=== PATIENT | female | born 1965 | race Two or more races ===

== ENCOUNTER 2020-09-18 15:34 | Inpatient (IN) | payer MEDICAID, OTHER ==
[~2020-09-18] VITALS: Ht 157.5 cm; Wt 97.2 kg
[2020-09-18 16:48] LABS: Urine Bacteria FEW /hpf (None Seen); Urine Blood 1+ /uL (Negative); Urine Specific Gravity 1.015 (1.001-1.035); Urine WBC 45 /hpf (0 - 5)
[2020-09-18] MEDS ORDERED: SODIUM CHLORIDE 0.9% 1,000 ML IVB ONE ×2 (18:15→19:45)
[2020-09-18] MEDS ORDERED: cefTRIAXone 1GM/50ML D5W 50 ML IV ONE (18:15)
[2020-09-18] MEDS ORDERED: ONDANSETRON ODT 4 MG TAB PO ONE (18:15)
[2020-09-18] MEDS ORDERED: KETOROLAC TROMETH 30 MG/ML 1ML VIAL IV ONE (19:45)
[2020-09-18 21:04] LABS: Hematocrit 41.6 % (36.0-46.0); Mean Corpuscular Hemoglobin 28.3 pg (28.0-32.0); Mean Corpuscular Hgb Conc. 33.5 g/dL (32.0-36.0); Mean Corpuscular Volume 84.5 fL (80.0-100.0); Platelet Count (auto) 280 10^3/uL (140-450); Red Blood Cells 4.93 10^6/uL (4.0-5.20); Red Cell Distribution Width 13.6 % (11.8-14.3); White Blood Cell 26.8 10^3/uL (4.4-10.8)
[2020-09-18 21:09] LABS: Basophils % (manual) 0 (0.0-2.0); Blast Cells 0; Eosinophils % (manual) 0 (0-7); Metamyelocytes % 0; Myelocytes % 0; Promyelocytes % 0; Reactive Lymphocytes 0
[2020-09-18 21:16] LABS: Albumin 3.5 g/dL (3.4-5.0); Calcium 9.3 mg/dL (8.5-10.1); Potassium 3.3 mmol/L (3.5-5.1)
[2020-09-18 21:20] LABS: BUN/Creatinine Ratio 21.2; Bilirubin, Total 0.6 mg/dL (0.2-1.0); Total Protein 7.7 g/dL (6.4-8.2)
[2020-09-18] MEDS ORDERED: HYDROcodone-ACET 5/325MG TAB PO PRN (22:15)
[2020-09-18] MEDS ORDERED: TEMAZEPAM 15 MG CAP PO PRN (22:15)
[2020-09-18] MEDS ORDERED: POTASSIUM CHL 20 Meq TABLET PO ONE (22:15)
[2020-09-18] MEDS ORDERED: ONDANSETRON HCL 4 MG/2 ML VIAL IV PRN (22:15)
[2020-09-18] MEDS ORDERED: DEXTROSE (50%) 50ML SYRG IV PRN (22:15)
[2020-09-18 22:28] LABS: Band Neutrophils % (manual) 6; Lymphocytes % (manual) 5 (10.0-50.0); Monocytes % (manual) 3 (0-12)
--- NOTE | 2020-09-18 23:33 | NUR ---
Patient Brought to Unit From ER Patient AOx4 and laying in bed w/ HOB at 30 degrees. Patient bed locked in lowest position and call light within reach. Patient has no s/s of distress or SOB. Asked patient about pain level, patient said "No pain." Will continue to monitor.
[2020-09-19] MEDS ORDERED: METF-370 PO (00:29)
[2020-09-19] MEDS ORDERED: LISI-648 PO (00:29)
[2020-09-19] MEDS ORDERED: CETI10TA80 PO (00:29)
[2020-09-19] MEDS ORDERED: MECL25TA18 PO (00:29)
[2020-09-19] MEDS ORDERED: GEMF600T7 PO (00:29)
[2020-09-19] MEDS ORDERED: GLIP10TA9 PO (00:29)
[2020-09-19] MEDS: ACETAMINOPHEN 325 MG TAB PO PRN ×2 (04:45→16:26)
--- NOTE | 2020-09-19 04:45 | NUR ---
Fever Patient has temperature of 102.7 F; Patient was given Tylenol PRN as prescribed for temperature. Cooling measures also applied. Will re-check temperature and monitor patient.
[2020-09-19 05:00] VITALS: BP 106/54
--- NOTE | 2020-09-19 06:00 | NUR ---
Temp re-check Temp is now 100.0 F; cooling measures still applied. Will continue to monitor.
[2020-09-19] MEDS: ACCU-CHEK COMFORT CURVE STRIP VI SCH ×4 (06:41→21:52)
[2020-09-19] MEDS: InsuLIN REG 1unit/0.01ml Soln (100units/ml) SC SCH ×4 (06:43→22:03)
[2020-09-19 07:43] LABS: Basophils # (auto) 0 10 ^3/uL (0-0.2); Basophils % (auto) 0.1 % (0.0-2.0); Eosinophils # (auto) 0 10 ^3/uL (0-0.8); Hematocrit 38.4 % (36.0-46.0); Hemoglobin 12.7 g/dL (12.2-16.2); Lymphocytes # (auto) 1.2 10 ^3/uL (0.4-5.4); Lymphocytes % (auto) 5.7 % (10.0-50.0); Mean Corpuscular Hemoglobin 28.3 pg (28.0-32.0); Mean Corpuscular Hgb Conc. 32.9 g/dL (32.0-36.0); Mean Corpuscular Volume 85.8 fL (80.0-100.0); Monocytes # (auto) 1.1 10 ^3/uL (0-1.3); Neutrophils # (auto) 19.5 10 ^3/uL (1.6-8.6); Neutrophils % (auto) 89.2 % (37.0-80.0); Platelet Count (auto) 224 10^3/uL (140-450); Red Blood Cells 4.48 10^6/uL (4.0-5.20); Red Cell Distribution Width 13.6 % (11.8-14.3); White Blood Cell 21.9 10^3/uL (4.4-10.8)
[2020-09-19 07:56] LABS: BUN/Creatinine Ratio 24.8; Calcium 8.5 mg/dL (8.5-10.1); Potassium 3.4 mmol/L (3.5-5.1)
[2020-09-19 09:00] VITALS: BP 91/50
[2020-09-19] MEDS: cefTRIAXone 1GM/50ML D5W 50 ML IV SCH (10:13)
[2020-09-19] MEDS: FAMOTIDINE 20 MG TAB PO SCH ×2 (10:13→21:52)
--- NOTE | 2020-09-19 11:20 | NUR ---
physician rounding Dr. Calvo at bedside. Md updated patient on plan of care and patient verbalized understanding. Will follow through, will continue care.
[2020-09-19 12:34] VITALS: BP 104/58
[2020-09-19] MEDS ORDERED: HYDROcodone-ACET 5/325MG TAB PO PRN (12:45)
[2020-09-19] MEDS ORDERED: SODIUM CHLORIDE 0.9% 1,000 ML IV ONE (14:00)
--- NOTE | 2020-09-19 16:10 | NUR ---
Cooling Measures applied. Patient currently has temp of 100.9 , cooling measures in place. Will administer ordered medications for fever.
--- NOTE | 2020-09-19 16:15 | NUR ---
OPENING SHIFT NOTE Assumed care of patient from JILLIAN RN. No s/s of distress noted. Patient is AOX4. Bed is in lowest locked position, side rails up x2 and call light within reach. Updated patient on plan of care and patient verbalized understanding. Will continue to monitor. Addendum: 09/19/20 at 1624 by AGUILA GANDARA RN CORRECT TIME IS 0740
[2020-09-19 16:51] VITALS: BP 116/66
--- NOTE | 2020-09-19 17:30 | NUR ---
Cooling Measures applied. Patient currently has temp of 100.8 , cooling measures in place.
[2020-09-19 17:55] LABS: Calcium 8.6 mg/dL (8.5-10.1); Potassium 3.5 mmol/L (3.5-5.1)
--- NOTE | 2020-09-19 19:30 | NUR ---
Opening Shift Note Assumed patient care. Patient is AOx4 no s/s of distress noted. Bed is in lowest locked position, call light within reach and side rails up x2. Updated patient on plan of care and patient verbalized understanding. Will continue to monitor.
--- NOTE | 2020-09-19 20:00 | NUR ---
Temp Re-Check: 98.3 F Patient is relaxed and has no complaints.
[2020-09-19 21:30] VITALS: BP 100/55
[2020-09-20 04:30] VITALS: BP 101/54
[2020-09-20] MEDS: ACCU-CHEK COMFORT CURVE STRIP VI SCH ×4 (06:30→22:12)
[2020-09-20] MEDS: InsuLIN REG 1unit/0.01ml Soln (100units/ml) SC SCH ×4 (06:35→22:17)
--- NOTE | 2020-09-20 07:20 | NUR ---
Assumed Care Assumed care patient AOx4 Thai speaker only. No pain reported at this time. No s/s of distress. Patient updated on POC and instructions to call for assistance as needed were provided. Bed in lowest, locked position, call light within reach, side rails x2 up. Will continue care.
[2020-09-20 09:00] VITALS: BP 114/58
[2020-09-20] MEDS: cefTRIAXone 1GM/50ML D5W 50 ML IV SCH (09:30)
[2020-09-20] MEDS: FAMOTIDINE 20 MG TAB PO SCH ×2 (09:31→22:11)
[2020-09-20 11:48] LABS: Basophils # (auto) 0.1 10 ^3/uL (0-0.2); Eosinophils # (auto) 0.1 10 ^3/uL (0-0.8); Eosinophils % (auto) 0.9 % (0.0-7.0); Nucleated Red Blood Cells % 0.1 %
[2020-09-20 11:57] LABS: Basophils % (auto) 0.7 % (0.0-2.0); Hematocrit 36.3 % (36.0-46.0); Hemoglobin 11.9 g/dL (12.2-16.2); Lymphocytes # (auto) 2.9 10 ^3/uL (0.4-5.4); Lymphocytes % (auto) 17.3 % (10.0-50.0); Mean Corpuscular Hemoglobin 28.3 pg (28.0-32.0); Mean Corpuscular Hgb Conc. 32.8 g/dL (32.0-36.0); Mean Corpuscular Volume 86.5 fL (80.0-100.0); Monocytes # (auto) 0.9 10 ^3/uL (0-1.3); Monocytes % (auto) 5.3 % (0.0-12.0); Neutrophils # (auto) 12.8 10 ^3/uL (1.6-8.6); Neutrophils % (auto) 75.8 % (37.0-80.0); Platelet Count (auto) 185 10^3/uL (140-450); Red Cell Distribution Width 13.6 % (11.8-14.3); White Blood Cell 16.9 10^3/uL (4.4-10.8)
[2020-09-20 12:06] LABS: Calcium 8.8 mg/dL (8.5-10.1); Potassium 4.8 mmol/L (3.5-5.1)
[2020-09-20] MEDS ORDERED: ENOXAPARIN SOD 40 MG/0.4 ML SYRINGE SC ONE (12:15)
[2020-09-20 12:40] VITALS: BP 138/69
[2020-09-20 16:29] VITALS: BP 141/73
--- NOTE | 2020-09-20 19:20 | NUR ---
Opening Shift Note Assumed patient care. Patient is AOx4 with HOB at 30 degrees. Patient has no complaints of pain, no s/s of distress or SOB. Patient bed locked in lowest position and call light is within reach. Will continue to monitor.
--- NOTE | 2020-09-20 21:12 | NUR ---
Temp 100.1 Cooling measures applied; will continue to monitor and re-check temp.
[2020-09-20 21:42] VITALS: BP 144/62
--- NOTE | 2020-09-20 22:32 | NUR ---
Temp Re-Check 98.5 F
[2020-09-21 05:04] VITALS: BP 125/71
[2020-09-21] MEDS: ACCU-CHEK COMFORT CURVE STRIP VI SCH ×4 (06:45→21:45)
[2020-09-21] MEDS: InsuLIN REG 1unit/0.01ml Soln (100units/ml) SC SCH ×4 (06:45→21:55)
[2020-09-21 09:00] VITALS: BP 109/63
[2020-09-21] MEDS: FAMOTIDINE 20 MG TAB PO SCH ×2 (10:00→21:45)
[2020-09-21] MEDS: cefTRIAXone 1GM/50ML D5W 50 ML IV SCH (10:00)
[2020-09-21] MEDS: ENOXAPARIN SOD 40 MG/0.4 ML SYRINGE SC SCH (10:00)
--- NOTE | 2020-09-21 12:20 | NUR ---
RECEIVED CRITICAL BLOOD CULTURE, REPORTED TO Sandie DOHERTY. Sandie IS AWARE. NO NEW ORDERS RECEIVED.
[2020-09-21 12:46] VITALS: BP 136/78
[2020-09-21] MEDS ORDERED: VANCOMYCIN PER PHARMACY 0 MG IV SCH (15:15)
[2020-09-21] MEDS: SODIUM CHLORIDE 0.9% 1,000 ML IV SCH (15:40)
[2020-09-21 16:46] VITALS: BP 126/77
[2020-09-21] MEDS: VANCOMYCIN 1GM/250ML 250 ML IV SCH (18:06)
--- NOTE | 2020-09-21 19:30 | NUR ---
PATIENT COMPLAINING OF ITCHINESS AND REDNESS ACROSS FACE. UPON ASSESSMENT, PATIENT IS NOTED TO HAVE REDNESS AND WARMTH TO FACE AND NECK AREA. PATIENT DENIES ANY SOB OR TIGHTNESS IN THROAT. PATIENTS OXYGEN SATURATIONS AT THIS TIME AT 96% WITH RR 17. MAGGIE MCKNIGHT AND INFORMED OF NEW FINDINGS.INFORMED THIS WAS PATIENTS FIRST DOSE OF VANCOMYCIN. INSTRUCTED TO SLOW INFUSIONS OF NEXT VANCOMYCIN INFUSIONS. ALSO RECIEVED ORDERS FOR NEW MEDICATIONS. TORB. SEE EMAR. WILL FOLLOW THROUGH.
--- NOTE | 2020-09-21 19:40 | NUR ---
RECEIVED PATIENT FROM DAY SHIFT RN. PATIENT RESTING IN BED. NO S/S OF DISTRESS NOTED.. C/O ITCHING AND WARMTH ON FACE AND NECK AREA GETTING BETTER AFTER MEDICATION. CONTINUE NS BOLUS ORDERED. DENIED PAIN AND SOB AT THIS TIME. POC INSTRUCTED AND ENCOURAGED PATIENT TO CALL FOR MANAGER METROLOGY IF NEEDED. BED IN LOWEST POSITION WITH SIDE RAILS UP X 2. CALL THOMPSON WITHIN REACH. ALARM ON. CONTINUE TO MONITOR FOR CHANGES Q1H AND PRN.
[2020-09-21] MEDS ORDERED: SODIUM CHLORIDE 0.9% 1,000 ML IV ONE (19:45)
[2020-09-21] MEDS ORDERED: methylPREDNISolone SOD SUCC 125 MG/2 ML VL IV ONE (19:45)
[2020-09-21] MEDS ORDERED: diphenhdrAMINE HCL 50 MG/1 ML VL IV ONE (19:45)
--- NOTE | 2020-09-21 20:30 | NUR ---
PATIENT'S FACE AND NECK BACK TO NORMAL COLOR, PATIENT DENIED ANY ITCHING AND DISCOMFORT. CONTINUE TO MONITOR.
[2020-09-21 22:00] VITALS: BP 133/76
--- NOTE | 2020-09-21 22:29 | NUR ---
ACCU-CHECK, BS 235. INSULIN GIVEN ORDERED. CONTINUE TO MONITOR.
--- NOTE | 2020-09-22 03:29 | NUR ---
PATIENT SLEEPING. NO S/S OF DISTRESS NOTED. CONTINUE TO MONITOR.
[2020-09-22 05:00] VITALS: BP 118/67
[2020-09-22] MEDS: VANCOMYCIN 1GM/250ML 250 ML IV SCH ×2 (05:15→17:52)
[2020-09-22] MEDS: ACCU-CHEK COMFORT CURVE STRIP VI SCH ×4 (06:17→21:42)
[2020-09-22] MEDS: InsuLIN REG 1unit/0.01ml Soln (100units/ml) SC SCH ×5 (06:18→21:43)
[2020-09-22 06:58] LABS: Basophils # (auto) 0 10 ^3/uL (0-0.2); Basophils % (auto) 0.6 % (0.0-2.0); Eosinophils # (auto) 0 10 ^3/uL (0-0.8); Eosinophils % (auto) 0.1 % (0.0-7.0); Hematocrit 38.4 % (36.0-46.0); Hemoglobin 12.7 g/dL (12.2-16.2); Lymphocytes % (auto) 15.2 % (10.0-50.0); Mean Corpuscular Hemoglobin 28.6 pg (28.0-32.0); Mean Corpuscular Volume 86.7 fL (80.0-100.0); Monocytes # (auto) 0.1 10 ^3/uL (0-1.3); Monocytes % (auto) 0.9 % (0.0-12.0); Neutrophils # (auto) 5.5 10 ^3/uL (1.6-8.6); Neutrophils % (auto) 83.2 % (37.0-80.0); Nucleated Red Blood Cells % 0.1 %; Platelet Count (auto) 220 10^3/uL (140-450); Red Blood Cells 4.42 10^6/uL (4.0-5.20); Red Cell Distribution Width 13.1 % (11.8-14.3); White Blood Cell 6.6 10^3/uL (4.4-10.8)
[2020-09-22 07:18] LABS: Magnesium 2.4 mg/dL (1.6-2.6); Potassium 3.9 mmol/L (3.5-5.1)
[2020-09-22 07:25] LABS: Albumin 2.6 g/dL (3.4-5.0); BUN/Creatinine Ratio 30.9; Bilirubin, Total 0.3 mg/dL (0.2-1.0); Calcium 9.1 mg/dL (8.5-10.1); Total Protein 7.6 g/dL (6.4-8.2)
[2020-09-22 08:40] VITALS: BP 137/73
[2020-09-22] MEDS: cefTRIAXone 1GM/50ML D5W 50 ML IV SCH (09:09)
[2020-09-22] MEDS: FAMOTIDINE 20 MG TAB PO SCH ×2 (09:09→21:42)
[2020-09-22] MEDS: ENOXAPARIN SOD 40 MG/0.4 ML SYRINGE SC SCH (09:10)
--- NOTE | 2020-09-22 10:30 | NUR ---
DR. DOHERTY AT BESIDE WITH MYSELF DISCUSSING POC WITH PATIENT-INFORMED PATIENT THAT AT THIS TIME TO CONTINUE ABX THERAPY AND AWAIT BLOOD CULTURES. PATIENT'S SON TRANSLATED THIS INFORMATION AND PATIENT VERBALIZED INFORMATION.
[2020-09-22] MEDS ORDERED: INFLUENZA QUAD 2020-2021 0.5 ML SYRG IM ONE (12:45)
[2020-09-22 12:59] VITALS: BP 137/69
[2020-09-22] MEDS: SODIUM CHLORIDE 0.9% 1,000 ML IV SCH (14:51)
--- NOTE | 2020-09-22 15:38 | NUR ---
Nutrition Assessment Notes Please refer to link for full assessment notes. Est Energy needs: [id number] kcals (17-20 kcal/kgBW) Est Protein needs: 65-81 gms/day (0.8-1.0 gm/kgBW) Will continue to monitor and reassess prn. Addendum: 09/22/20 at [address] Amended: Links added.
[2020-09-22 17:19] VITALS: BP 138/76
--- NOTE | 2020-09-22 19:20 | NUR ---
RECEIVED PATIENT FROM DAY SHIFT RN. PATIENT RESTING IN BED. NO S/S OF DISTRESS NOTED.. DENIED PAIN AND ANY DISCOMFORT AT THIS TIME. POC INSTRUCTED AND ENCOURAGED PATIENT TO CALL FOR MOMD TEACHER IF NEEDED. BED IN LOWEST POSITION WITH SIDE RAILS UP X 2. CALL THOMPSON WITHIN REACH. CONTINUE TO MONITOR FOR CHANGES Q1H AND PRN.
--- NOTE | 2020-09-22 21:46 | NUR ---
ACCU-CHECK, BS 252. INSULIN GIVEN ORDERED. CONTINUE TO MONITOR.
[2020-09-22 22:00] VITALS: BP 146/79
--- NOTE | 2020-09-23 02:07 | NUR ---
PATIENT SLEEPING. NO S/S OF DISTRESS AND PAIN NOTED. CONTINUE TO MONITOR.
[2020-09-23 05:00] VITALS: BP 112/63
[2020-09-23] MEDS: VANCOMYCIN 1GM/250ML 250 ML IV SCH (05:01)
[2020-09-23] MEDS: InsuLIN REG 1unit/0.01ml Soln (100units/ml) SC SCH ×4 (06:27→21:59)
[2020-09-23] MEDS: ACCU-CHEK COMFORT CURVE STRIP VI SCH ×4 (06:27→21:54)
--- NOTE | 2020-09-23 06:28 | NUR ---
ACCU-CHECK, BS 180. INSULIN GIVEN ORDERED. CONTINUE TO MONITOR.
[2020-09-23 09:00] VITALS: BP 139/69
[2020-09-23] MEDS: FAMOTIDINE 20 MG TAB PO SCH ×2 (09:03→21:54)
[2020-09-23] MEDS: cefTRIAXone 1GM/50ML D5W 50 ML IV SCH (09:04)
[2020-09-23] MEDS: SODIUM CHLORIDE 0.9% 1,000 ML IV SCH (09:04)
[2020-09-23] MEDS: ENOXAPARIN SOD 40 MG/0.4 ML SYRINGE SC SCH (09:04)
[2020-09-23 13:00] VITALS: BP 113/66
[2020-09-23] MEDS ORDERED: levoFLOXacin 500 MG TAB PO ONE (14:45)
[2020-09-23 16:41] VITALS: BP 141/71
--- NOTE | 2020-09-23 19:35 | NUR ---
Opening Shift Note Assumed care of patient, awake and alert. No S/S of distress/SOB. Instructed on POC and to call for assist PRN. Bed is in lowest locked position with bed rails up x2 and call light is within reach of the patient.
[2020-09-23 22:00] VITALS: BP 126/76
[2020-09-24 05:30] VITALS: BP 119/71
[2020-09-24] MEDS: ACCU-CHEK COMFORT CURVE STRIP VI SCH ×2 (06:30→12:21)
[2020-09-24] MEDS: InsuLIN REG 1unit/0.01ml Soln (100units/ml) SC SCH ×2 (06:36→11:30)
[2020-09-24 07:12] LABS: Basophils # (auto) 0.1 10 ^3/uL (0-0.2); Basophils % (auto) 0.5 % (0.0-2.0); Eosinophils # (auto) 0.1 10 ^3/uL (0-0.8); Eosinophils % (auto) 1.1 % (0.0-7.0); Hematocrit 39.1 % (36.0-46.0); Hemoglobin 13.1 g/dL (12.2-16.2); Lymphocytes # (auto) 2.6 10 ^3/uL (0.4-5.4); Lymphocytes % (auto) 27.3 % (10.0-50.0); Mean Corpuscular Hemoglobin 28.4 pg (28.0-32.0); Mean Corpuscular Hgb Conc. 33.4 g/dL (32.0-36.0); Mean Corpuscular Volume 84.9 fL (80.0-100.0); Monocytes # (auto) 0.7 10 ^3/uL (0-1.3); Monocytes % (auto) 7.6 % (0.0-12.0); Neutrophils % (auto) 63.5 % (37.0-80.0); Nucleated Red Blood Cells % 0.1 %; Platelet Count (auto) 263 10^3/uL (140-450); Red Cell Distribution Width 13.3 % (11.8-14.3); White Blood Cell 9.4 10^3/uL (4.4-10.8)
[2020-09-24 07:43] LABS: Potassium 3.6 mmol/L (3.5-5.1)
[2020-09-24 07:56] LABS: BUN/Creatinine Ratio 28.9
[2020-09-24 09:00] VITALS: BP 140/71
[2020-09-24] MEDS: ENOXAPARIN SOD 40 MG/0.4 ML SYRINGE SC SCH (09:49)
[2020-09-24] MEDS: FAMOTIDINE 20 MG TAB PO SCH (09:49)
--- NOTE | 2020-09-24 09:52 | NUR ---
Levofloxacin Medication order was 500mg at the time when patient and medication was scanned and administered. However it was not saved due to edits that occurred prior to saving. Pharmacy was notified and will enter a one time dose for an additional 250mg.
[2020-09-24] MEDS ORDERED: levoFLOXacin 500 MG TAB PO SCH (10:00)
[2020-09-24] MEDS ORDERED: levoFLOXacin 250 MG TAB PO ONE (10:00)
[2020-09-24] MEDS ORDERED: levoFLOXacin 250 MG TAB PO SCH (10:00)
[2020-09-24] MEDS ORDERED: LEVO750T64 PO (12:55)
[2020-09-24 13:00] VITALS: BP 134/81
[2020-09-24 13:08] VITALS: BP 134/81
--- NOTE | 2020-09-24 15:00 | NUR ---
Discharge instructions given as ordered. Encourage to follow up with PMD as instructed. All questions and concerns addressed. Patient verbalized understanding. Medication reconciliation form completed and copy given to patient. Home medications held in Pharmacy returned to patient. IV removed with catheter intact and pressure dressing applied. Patient taken to vehicle via wheelchair with all personal belongings, accompanied by staff. No distress noted at time of departure.
[2020-09-25] MEDS ORDERED: levoFLOXacin 250 MG TAB PO SCH (10:00)
== END 2020-09-24 15:00 | disposition home or self-care (01) | DRG 720 ==
LOC: ER 15:37 → OVERFLOW 15:38 → WEST WING 23:33
PROVIDERS: ADMIT Nurse Practitioner; ATTEND Internal Medicine
DX: A41.9 Sepsis, unspecified organism (principal); N17.0 Acute kidney failure with tubular necrosis; N13.6 Pyonephrosis; E11.9 Type 2 diabetes mellitus without complications; E66.01 Morbid (severe) obesity due to excess calories; E78.5 Hyperlipidemia, unspecified; I10 Essential (primary) hypertension; R65.20 Severe sepsis without septic shock; R16.0 Hepatomegaly, not elsewhere classified; B95.8 Unspecified staphylococcus as the cause of diseases classified elsewhere; Z82.49 Family history of ischemic heart disease and other diseases of the circulatory system; Z68.41 Body mass index [BMI] 40.0-44.9, adult; R91.1 Solitary pulmonary nodule
CPT/HCPCS: 36415; 74176; 76775; 80048; 80053; 80061; 80202; 81001; 82565; 82962; 83036; 83735; 84443; 85007; 85025; 85027; 87040; 87077; 87086; 87186; 93005; G0378; J0696; J1815; J1885; Q0162